=== PATIENT | female | born 1950 | race Caucasian/White ===

== ENCOUNTER 2022-02-27 06:07 | Outpatient (CLI) | payer MEDICARE, OTHER ==
[~2022-02-27] VITALS: Ht 162.6 cm; Wt 54.5 kg
[2022-02-27] MEDS ORDERED: LOVA20TA2 PO (14:27)
[2022-02-27] MEDS ORDERED: BACL10TA PO (14:27)
[2022-02-27] MEDS ORDERED: MULT-1021 PO (14:27)
[2022-02-27] MEDS ORDERED: PUMP300C PO (14:27)
[2022-02-27] MEDS ORDERED: SERT50TA2 PO (14:27)
[2022-02-27] MEDS ORDERED: TOPI25TA10 PO (14:27)
[2022-02-27] MEDS ORDERED: CA C1TAB75 PO (14:27)
== END 2022-02-27 14:52 ==
LOC: EDBD 06:07 → PREOP 06:07
PROVIDERS: ATTEND Otolaryngology Otolaryngology/Facial Plastic Surgery
DX: Z01.818 Encounter for other preprocedural examination (principal); J34.2 Deviated nasal septum

== ENCOUNTER 2022-03-03 06:53 | Day surgery (SDC) | payer MEDICARE, OTHER ==
[~2022-03-03] VITALS: Ht 162.6 cm; Wt 54.5 kg
[2022-03-03] VITALS (10 sets, daily range): BP systolic 107–124; BP diastolic 38–58
[~2022-03-03 06:53] MED LIST: BACL10TA PO; CA C1TAB75 PO; LOVA20TA2 PO; MULT-1021 PO; PUMP300C PO; SERT50TA2 PO; TOPI25TA10 PO
[2022-03-03] MEDS: LACTATED RINGERS 1,000 ML IV PRN ×2 (07:15→10:01)
[2022-03-03 07:31] LABS: BASOPHILS # (AUTO) 0.1 10^3/uL (0.0-0.1); BASOPHILS % (AUTO) 1 % (0-10); EOSINOPHILS # (AUTO) 0.3 10^3/uL (0.0-0.3); EOSINOPHILS % (AUTO) 3 % (0-10); HEMATOCRIT 39 % (35-52); HEMOGLOBIN 12.9 g/dL (11.5-16.0); LYMPHOCYTES # (AUTO) 2.1 10^3/uL (1.0-4.0); LYMPHOCYTES % (AUTO) 19 % (12-44); MEAN CORPUSCULAR HEMOGLOBIN 32 pg (25-34); MEAN CORPUSCULAR HGB CONC 33 g/dL (32-36); MEAN CORPUSCULAR VOLUME 96 fL (80-99); MEAN PLATELET VOLUME 10.6 fL (9.0-12.2); MONOCYTES # (AUTO) 0.9 10^3/uL (0.0-1.0); MONOCYTES % (AUTO) 8 % (0-12); NEUTROPHILS # (AUTO) 7.6 10^3/uL (1.8-7.8); NEUTROPHILS % (AUTO) 69 % (42-75); PLATELET COUNT 421 10^3/uL (130-400)
[2022-03-03 07:48] LABS: CALCIUM 10.1 MG/DL (8.5-10.1); CREATININE SERUM 0.88 MG/DL (0.60-1.30); POTASSIUM 4.2 MMOL/L (3.6-5.0)
[2022-03-03] MEDS ORDERED: LIDOCAINE/EPI 1%-1:200,000 (XYLOCAINE) 30 ML VIAL ONE (08:13)
[2022-03-03] MEDS ORDERED: PHENYLEPHRINE 0.5% NASAL SPR (NEO-SYNEPHRINE) REG ONE (08:13)
[2022-03-03] MEDS ORDERED: COCAINE HCL 4% 2 ML SYR ONE (08:13)
[2022-03-03] MEDS ORDERED: LIDOCAINE PF 2% 5 ML (XYLOCAINE) VIAL ONE (08:28)
[2022-03-03] MEDS ORDERED: fentaNYL INJ 100 MCG/2 ML AMP ONE (08:28)
[2022-03-03] MEDS ORDERED: proPOfol 200 MG/20 ML (DIPRIVAN) VIAL IV ONE (08:28)
[2022-03-03] MEDS ORDERED: ROCURONIUM 50 MG/5 ML (ZEMURON) VIAL IV ONE (08:29)
--- NOTE | 2022-03-03 08:38 | Progress Note-Post Operative ---
Post-Operative Progess Note Surgeon (s)/Director Plans (s) Surgeon JOHNATHAN MIXON MD Director Plans n/a Pre-Operative Diagnosis Nasospetal FRacture with Nasal Obstruction and Septal Hematoma Post-Operative Diagnosis same Post-Op Procedure Note Date of Procedure: March 03, 2022 Name of Procedure Performed: Incisino/Darinage SEptal Hematoma, Nasal Septoplasty Description & Findings Description and Findings: n/a Anesthesia Type get Estimated Blood Loss minimal Packing none. Specimen(s) collected/removed nasal septum JOHNATHAN MIXON MD March 03, 2022 08:38
--- NOTE | 2022-03-03 08:38 | Progress Note-Pre Operative ---
Pre-Operative Progress Note H&P Reviewed The H&P was reviewed, patient examined and no changes noted. Date Seen by Provider: March 03, 2022 Time Seen by Provider: 08:00 Date H&P Reviewed: March 03, 2022 Time H&P Reviewed: 08:00 Pre-Operative Diagnosis: Nasospetal FRacture with Nasal Obstruction and Septal Hematoma JOHNATHAN MIXON MD March 03, 2022 08:38
[2022-03-03] MEDS ORDERED: PROMETHAZINE INJ 25 MG/ML (PHENERGAN) AMP IVP PRN (08:45)
[2022-03-03] MEDS ORDERED: D5 1/2 NS W/KCL 20 MEQ/L 1,000 ML IV SCH (08:45)
[2022-03-03] MEDS ORDERED: HYDROcodone/APAP 5 MG/325 MG (LORTAB) TAB PO PRN (08:45)
[2022-03-03] MEDS ORDERED: GLYCOPYRROLATE 0.2 MG/ML (ROBINUL) 2 ML VIAL ONE (09:11)
[2022-03-03] MEDS ORDERED: NEOSTIGMINE 3 MG/3 ML VIAL ONE (09:11)
[2022-03-03] MEDS ORDERED: AMOX-355 PO (10:27)
[2022-03-03] MEDS ORDERED: ACHD5005 PO (10:27)
[2022-03-03] MEDS ORDERED: HYDROcodone/APAP 5 MG/325 MG (LORTAB) TAB ONE (10:31)
--- NOTE | 2022-03-03 14:36 | Anesthesia-General Post-Op ---
General Patient Condition Mental Status/LOC: Same as Preop Cardiovascular: Satisfactory Nausea/Vomiting: Absent Respiratory: Satisfactory Pain: Controlled Complications: Absent Post Op Complications Complications None Follow Up Care/Instructions Patient Instructions None needed. Anesthesia/Patient Condition Patient Condition Patient is doing well, no complaints, stable vital signs, no apparent adverse anesthesia problems. No complications reported per nursing. KAR ISABEL CRNA March 03, 2022 14:36
== END 2022-03-03 11:35 | disposition home or self-care (01) ==
LOC: EDBD → SDC 06:53
PROVIDERS: ATTEND Otolaryngology Otolaryngology/Facial Plastic Surgery
DX: J34.2 Deviated nasal septum (principal); S00.33XA Contusion of nose, initial encounter; S02.2XXA Fracture of nasal bones, initial encounter for closed fracture
CPT/HCPCS: 36415; 80048; 85025; 87081; 93005